=== PATIENT | male | born 1965 | race African-American/Black ===

== ENCOUNTER 2023-04-15 14:00 | Emergency (ER) | payer OTHER ==
[2023-04-15] MEDS ORDERED: Sodium Chloride 0.9% 10 ML Syringe FLUSH PRN (14:10)
[2023-04-15] MEDS: Diphtheria,Pertussis(Acell),Tetanus Vaccine 0.5 ML Syringe IM ONE (14:25)
[2023-04-15] MEDS: Lidocaine 2% 5 ML SDV INJECT ONE (14:25)
[2023-04-15] MEDS: ceFAZolin 1 GM Vial IVPUSH ONE (14:26)
[2023-04-15 16:34] VITALS: BP 125/80; PULSE 70
== END 2023-04-15 16:45 ==
LOC: KA.ED 14:00
DX: S62.637B Displaced fracture of distal phalanx of left little finger, initial encounter for open fracture (principal); S61.317A Laceration without foreign body of left little finger with damage to nail, initial encounter; Z23 Encounter for immunization; F17.200 Nicotine dependence, unspecified, uncomplicated; Z79.899 Other long term (current) drug therapy; W23.0XXA Caught, crushed, jammed, or pinched between moving objects, initial encounter; Y92.89 Other specified places as the place of occurrence of the external cause; Y99.0 Civilian activity done for income or pay
CPT/HCPCS: 73140-F4; 90471; 90715; 96374; 99284-25; J0690; J3490